=== PATIENT | female | born 1985 | race Caucasian/White ===

== ENCOUNTER 2019-08-19 08:00 | Outpatient (CLI) | payer OTHER ==
[2019-08-19 18:33] LABS: BILIRUBIN,URINE NEGATIVE (NEGATIVE); GLUCOSE, URINE (UA) NEGATIVE (NEGATIVE); KETONES,URINE (UA) NEGATIVE (NEGATIVE); LEUKOCYTE ESTERASE, URINE LARGE (NEGATIVE); NITRITE,URINE NEGATIVE (NEGATIVE); OCCULT BLOOD,URINE NEGATIVE (NEGATIVE); PROTEIN,URINE NEGATIVE (NEGATIVE); UROBILINOGEN,URINE 0.2 (NORMAL) E.U./dL (NORMAL)
[2019-08-19 18:48] LABS: BACTERIA,URINE Few /HPF (None Seen); CLARITY,URINE CLOUDY (CLEAR); RBC,URINE 0-5 /HPF (0-5); SQUAMOUS EPITHELIAL CELL,UR MANY Squamous (<= Few)
== END 2019-08-19 23:59 | disposition home or self-care (01) ==
LOC: LAB.R 08:00
PROVIDERS: ATTEND Physician Assistant Medical
DX: R82.90 Unspecified abnormal findings in urine (principal)
CPT/HCPCS: 81001; 81003; 87086

== ENCOUNTER 2019-08-19 12:59 | Outpatient (CLI) | payer OTHER ==
--- NOTE | 2019-08-20 15:18 | XRAY Report ---
Reason: CHRONIC HIP LOWER BACK PAIN Procedure Date: 08/19/2019 Accession Number: [id number] / [id number] Procedure: XRN - Lumbar Spine 2 View CPT Code: FULL RESULT: EXAM: LUMBOSACRAL SPINE RADIOGRAPHY EXAM DATE: 08/19/2019 01:24 PM. CLINICAL HISTORY: Chronic hip and lower back pain. COMPARISONS: None. TECHNIQUE: 3 views. FINDINGS: For the purposes of this report the last rib-bearing vertebral body is designated T12. 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 This is best demonstrated on the AP and sagittal views. There is fusion of the posterior elements also demonstrated on the sagittal images. This produces a focal levoscoliosis of the lumbar spine measuring 24 degrees with the apex at L2-L3. There is a moderate to severe decrease in the intervertebral disk space height at L5-S1 and S1-S2. The sacral arcs are normal in appearance. The renal shadows are normal in appearance. There is a normal bowel gas pattern. Bone density is normal. There is a 4 mm retrolisthesis of L5 on S1. There is moderate narrowing of the neural foramina at S1-S2 and mild to moderate narrowing at L5-S1. There is a moderate decrease in the intervertebral disk space height at L5-S1 and S1-S2 with endplate spondylosis. There is also mild sclerosis of the endplates consistent with Modic type III endplate degenerative change. There is a mild to moderate decrease in the height of the disk at L3-L4. IMPRESSION: 1. For the purposes of this report the last rib-bearing vertebral body is designated T12. 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 There is also congenital fusion of the posterior elements. See above for additional details. This produces a focal levoscoliosis measuring 24 degrees. Therefore, the last lumbar style vertebral body is designated S1. Therefore, there is likely a transitional vertebral body present. 2. There is no evidence of acute fracture of the lumbar spine. 3. There are moderate degenerative changes of the disk at L5-S1 and S1-S2.
--- NOTE | 2019-08-20 22:00 | XRAY Report ---
Reason: CHRONIC HIP BACK PAIN Procedure Date: 08/19/2019 Accession Number: [id number] / [id number] Procedure: XRN - Hip w/Pelvis 2-3V RT CPT Code: FULL RESULT: EXAM: RIGHT HIP RADIOGRAPHY EXAM DATE: 08/19/2019 01:24 PM. CLINICAL HISTORY: Right hip pain. COMPARISON: None. TECHNIQUE: 2 views including AP pelvis. FINDINGS: Bones: No fracture or bone destructive process. Joints: No subluxation. Bilateral hip joints are well preserved. Intact pubic symphysis and grossly symmetrical SI joints. Other: Degenerative changes of the visualized lower lumbar spine. IUD in the pelvis. IMPRESSION: 1. Unremarkable right hip radiographically. RADIA
== END 2019-08-19 13:00 | disposition home or self-care (01) ==
LOC: DI.N 12:59
PROVIDERS: ATTEND Physician Assistant Medical
DX: M51.37 Other intervertebral disc degeneration, lumbosacral region (principal); M53.3 Sacrococcygeal disorders, not elsewhere classified; M41.56 Other secondary scoliosis, lumbar region; M43.26 Fusion of spine, lumbar region; M25.551 Pain in right hip; R82.90 Unspecified abnormal findings in urine
CPT/HCPCS: 72100; 81001

== ENCOUNTER 2019-09-16 09:08 | Outpatient (CLI) | payer OTHER ==
[2019-09-16 12:27] LABS: BASOPHILS # (AUTO) 0.1 10^3/uL (0.0-0.1); BASOPHILS % (AUTO) 1.4 %; EOSINOPHILS # (AUTO) 0.1 10^3/uL (0.0-0.7); EOSINOPHILS % (AUTO) 1.8 %; HGB - HEMOGLOBIN 13.3 g/dL (12.0-16.0); LYMPHOCYTES # (AUTO) 2.1 10^3/uL (1.5-3.5); LYMPHOCYTES % (AUTO) 26.4 %; MEAN CORPUSCULAR HEMOGLOBIN 29.4 pg (27.0-31.0); MEAN CORPUSCULAR HGB CONC 32.1 g/dL (32.0-36.0); MEAN CORPUSCULAR VOLUME 91.4 fL (81.0-99.0); MEAN PLATELET VOLUME 11.6 fL (7.9-10.8); MONOCYTES # (AUTO) 0.6 10^3/uL (0.0-1.0); MONOCYTES % (AUTO) 8.1 %; NEUTROPHILS # (AUTO) 4.9 10^3/uL (1.5-6.6); PLT - PLATELET COUNT 318 10^3/uL (130-450); RED BLOOD COUNT 4.53 10^6/uL (4.20-5.40); WHITE BLOOD COUNT 7.9 x10^3/uL (4.8-10.8)
[2019-09-16 12:41] LABS: ALBUMIN 4.4 g/dL (3.2-5.5); ALBUMIN/GLOBULIN RATIO 1.2 (1.0-2.2); BILIRUBIN,TOTAL 1.6 mg/dL (0.2-1.0); CALCIUM 9.4 mg/dL (8.5-10.3)
== END 2019-09-16 09:09 | disposition home or self-care (01) ==
LOC: LAB.N 09:08
PROVIDERS: ATTEND Physician Assistant Medical
DX: R51 Headache (principal); R03.0 Elevated blood-pressure reading, without diagnosis of hypertension; R11.0 Nausea
CPT/HCPCS: 36415; 80050; 82306

== ENCOUNTER 2020-05-10 04:27 | Emergency (ER) | payer OTHER ==
--- NOTE | 2020-05-10 04:31 | ED Physician Documentation ---
PD HPI ABD PAIN - Stated complaint Stated Complaint: AB PX/ N/V - History obtained from History obtained from: Patient - History of Present Illness Timing - onset: Enter time (19:00), Last night Timing - details: Abrupt onset, Constant, Waxing and waning Pain level now: 8 Quality: Pain Location: RUQ, Epigastric Radiation: Other (does not radiate) Improved by: Other (no ameliorating factors) Worsened by: Palpation Associated symptoms: Nausea, Vomiting. No: Fever, Diarrhea, Constipation Similar symptoms before: Has not had sx before Recently seen: Not recently seen Review of Systems Constitutional: denies: Fever, Chills, Sweats Cardiac: reports: Reviewed and negative Respiratory: reports: Reviewed and negative GI: reports: Abdominal Pain, Nausea, Vomiting. denies: Abdominal Swelling, Constipation, Diarrhea : denies: Dysuria, Frequency Skin: denies: Rash Musculoskeletal: denies: Back pain PD PAST MEDICAL HISTORY - Past Medical History Past Medical History: No - Past Surgical History Past Surgical History: No - Present Medications Home Medications: Ambulatory Orders Medication Instructions Recorded Confirmed Ondansetron Odt [Zofran] 4 mg TL Q6H PRN #14 tablet 05/10/20 oxyCODONE/ACET 5/325 [Percocet 5 1 - 2 each PO Q6H PRN #14 tablet 05/10/20 mg/325 mg] - Allergies Allergies/Adverse Reactions: Allergies Allergy/AdvReac Type Severity Reaction Status Date / Time No Known Drug Allergies Allergy Verified 05/10/20 04:38 - Living Situation Living Arrangement: reports: At home - Social History Does the pt smoke?: No PD ED PE NORMAL - Vitals Vital signs reviewed: Yes - General General: Alert and oriented X 3, Well developed/nourished, Other (obvious painful discomfort) - HEENT HEENT: Moist mucous membranes - Neck Neck: Supple, no meningeal sign - Cardiac Cardiac: RRR, No murmur - Respiratory Respiratory: No respiratory distress, Clear bilaterally - Abdomen Abdomen: Soft, Non distended - Back Back: No CVA TTP - Derm Derm: Normal color, Warm and dry, No rash PD ED PE EXPANDED - Abdomen Abdomen: Tender to palpation, RUQ, Epigastric. No: Rebound, Guarding Results - Vitals Vitals: Oxygen O2 Source Room air - Labs Labs: Laboratory Tests 05/10/20 05/10/20 05/10/20 04:45 05:01 05:01 WBC 13.3 H RBC 4.68 Hgb 13.8 Hct 40.8 MCV 87.2 MCH 29.5 MCHC 33.8 RDW 12.6 Plt Count 331 MPV 11.0 H Neut # (Auto) 10.9 H Lymph # (Auto) 1.5 [place] # (Auto) 0.7 Eos # (Auto) 0.0 Baso # (Auto) 0.1 Absolute Nucleated RBC 0.00 Nucleated RBC % 0.0 Sodium 137 Potassium 3.2 L Chloride 101 Carbon Dioxide 22 Anion Gap 14.0 H BUN 19 Creatinine 1.0 Estimated GFR (MDRD) 63 L Glucose 115 H Calcium 9.1 Total Bilirubin 1.4 H AST 16 ALT 14 Alkaline Phosphatase 54 Total Protein 8.1 Albumin 5.0 Globulin 3.1 Albumin/Globulin Ratio 1.6 Lipase 25 Urine Color YELLOW Urine Clarity CLEAR Urine pH >=9.0 H Ur Specific [place] 1.010 Urine Protein TRACE Urine Glucose (UA) NEGATIVE Urine Ketones NEGATIVE Urine Occult Blood NEGATIVE Urine Nitrite NEGATIVE Urine Bilirubin NEGATIVE Urine Urobilinogen 0.2 (NORMAL) Ur Leukocyte Esterase NEGATIVE Ur Microscopic Review NOT INDICATED Urine Culture Comments NOT INDICATED Urine HCG, Qual NEGATIVE - Rads (name of study) RUQ US Radiology: Prelim report reviewed, See rad report PD MEDICAL DECISION MAKING - ED course Complexity details: reviewed results, re-evaluated patient, considered differential, d/w patient Departure - Departure Disposition: 01 Home, Self Care Clinical Impression: Biliary colic Condition: Good Instructions: ED Gallstone W Biliary Colic Follow-Up: Giuliano Leon MD [Provider Admit Priv/Credential] - Prescriptions: oxyCODONE/ACET 5/325 [Percocet 5 mg/325 mg] 1 - 2 each PO Q6H PRN #14 tablet PRN Reason: Pain Ondansetron Odt [Zofran] 4 mg TL Q6H PRN #14 tablet PRN Reason: Nausea / Vomiting Discharge Date/Time: 05/10/20 08:25
[2020-05-10] MEDS ORDERED: ONDANSETRON 4 MG/2 ML VIAL IVP STA (04:41)
[2020-05-10] MEDS ORDERED: SODIUM CHLORIDE 0.9% 1,000 ML IV STA (04:41)
[2020-05-10] MEDS ORDERED: KETOROLAC 30 MG/ML VIAL IVP STA (05:01)
[2020-05-10 05:08] LABS: BASOPHILS # (AUTO) 0.1 10^3/uL (0.0-0.1); BASOPHILS % (AUTO) 0.7 %; EOSINOPHILS % (AUTO) 0.3 %; HGB - HEMOGLOBIN 13.8 g/dL (12.0-16.0); LYMPHOCYTES # (AUTO) 1.5 10^3/uL (1.5-3.5); LYMPHOCYTES % (AUTO) 11.6 %; MEAN CORPUSCULAR HEMOGLOBIN 29.5 pg (27.0-31.0); MEAN CORPUSCULAR HGB CONC 33.8 g/dL (32.0-36.0); MEAN CORPUSCULAR VOLUME 87.2 fL (81.0-99.0); MONOCYTES # (AUTO) 0.7 10^3/uL (0.0-1.0); NEUTROPHILS # (AUTO) 10.9 10^3/uL (1.5-6.6); PLT - PLATELET COUNT 331 10^3/uL (130-450); RED BLOOD COUNT 4.68 10^6/uL (4.20-5.40); RED CELL DISTRIBUTION WIDTH 12.6 % (12.0-15.0); WHITE BLOOD COUNT 13.3 x10^3/uL (4.8-10.8)
[2020-05-10 05:12] LABS: BILIRUBIN,URINE NEGATIVE (NEGATIVE); CLARITY,URINE CLEAR (CLEAR); GLUCOSE, URINE (UA) NEGATIVE (NEGATIVE); HCG UR QUAL NEGATIVE; KETONES,URINE (UA) NEGATIVE (NEGATIVE); LEUKOCYTE ESTERASE, URINE NEGATIVE (NEGATIVE); NITRITE,URINE NEGATIVE (NEGATIVE); OCCULT BLOOD,URINE NEGATIVE (NEGATIVE); PH,URINE >=9.0 PH (5.0-7.5); PROTEIN,URINE TRACE mg/dL (NEGATIVE); UROBILINOGEN,URINE 0.2 (NORMAL) E.U./dL (NORMAL)
[2020-05-10 05:25] LABS: ALBUMIN/GLOBULIN RATIO 1.6 (1.0-2.2); BILIRUBIN,TOTAL 1.4 mg/dL (0.2-1.0); CALCIUM 9.1 mg/dL (8.5-10.3); TOTAL PROTEIN 8.1 g/dL (6.7-8.2)
[2020-05-10] MEDS ORDERED: PANTOPRAZOLE 40 MG VIAL IVP STA (07:07)
--- NOTE | 2020-05-10 07:28 | Ultrasound Report ---
PROCEDURE: Abdomen Limited INDICATIONS: RUQ pain TECHNIQUE: Real-time focused scanning was performed of the abdomen, with image documentation. COMPARISON: None FINDINGS: Liver is normal in size. Liver is diffusely echogenic. No focal hepatic mass lesions. Multiple mobile gallstones noted. Gallbladder wall is mildly thickened measuring 3.3 mm. No perichole cystic fluid. No sonographic Lopez sign (patient on pain medication). Biliary tree is nondilated. Common bile duct measures 5.7 mm. Pancreas is sonographically normal. Right kidney is sonographically normal. IMPRESSION: 1. Cholelithiasis with mild gallbladder wall thickening concerning for acute cholecystitis. Nuclear m edicine HIDA scan could be performed for definitive characterization if clinically indicated. 2. Echogenic liver. Finding typically represents fatty infiltration, however finding is nonspecific a nd other etiologies including hepatic cirrhosis can produce a similar appearance. Please correlate wi th clinical and laboratory data. Reviewed by: Sugey Bray MD, PhD on 05/10/2020 7:27 AM PDT Approved by: Sugey Bray MD, PhD on 05/10/2020 7:27 AM PDT Station ID: [id number]
[2020-05-10] MEDS ORDERED: oxyCODONE/ACET 5/325 Prepack 4 PO STA (07:30)
[2020-05-10 08:25] VITALS: BP 132/70
== END 2020-05-10 08:25 | disposition home or self-care (01) ==
LOC: ED 04:27
DX: K80.20 Calculus of gallbladder without cholecystitis without obstruction (principal)
CPT/HCPCS: 36415; 76705; 80053; 81001; 81003; 81025; 83690; 85025; 87086; 96361; 96374; 96375; 99284

== ENCOUNTER 2020-07-15 14:31 | Outpatient (CLI) | payer OTHER | END 2020-07-15 14:32 | disposition home or self-care (01) | LOC: COV 14:31 | PROVIDERS: ATTEND Surgery | DX: Z01.818 Encounter for other preprocedural examination (principal); K81.9 Cholecystitis, unspecified; Z20.828 Contact with and (suspected) exposure to other viral communicable diseases ==

== ENCOUNTER 2020-07-19 07:43 | Day surgery (SDC) | payer OTHER ==
[~2020-07-19 07:43] MED LIST: CEFAZOLIN SODIUM IN 0.9 % NACL 2 GM/100 ML BAG IV ONE
[2020-07-19 08:06] LABS: HCG UR QUAL NEGATIVE
[2020-07-19] MEDS ORDERED: BUPIVACAINE 0.25% PF 30 ML VIAL ONE (08:06)
[2020-07-19] MEDS ORDERED: LACTATED RINGERS 1,000 ML IV ONE ×2 (08:09→10:20)
--- NOTE | 2020-07-19 08:15 | ANESTHESIA ---
Pre-Anesthesia VS, & Labs - NPO >8 hours - Is Patient ?: No <Dre Gates - Last Filed: 07/19/20 08:14> - NPO >8 hours - Is Patient ?: Yes <Vi Mittal - Last Filed: 07/19/20 08:38> - Diagnosis Chronic cholecystitis (Dre Gates) - Procedure Laparoscopic cholecystectomy (Dre Gates) Vital Signs: Temp Pulse Resp BP Pulse Ox 36.7 C 81 18 145/98 H 100 07/19/20 07:45 07/19/20 07:45 07/19/20 07:45 07/19/20 07:45 07/19/20 07:45 Height 5 ft 9 in Weight (kg) 93.8 kg Body Mass Index 29.5 Home Medications and Allergies <Dre Gates - Last Filed: 07/19/20 08:14> <Vi Mittal - Last Filed: 07/19/20 08:38> Home Medications: Ambulatory Orders No Known Home Medications 07/04/20 Active Medications Atropine Sulfate () 0.5 mg IVP Q5M PRN PRN Reason: Bradycardia Stop: 07/20/20 08:28 Ephedrine Sulfate () 10 mg IVP Q5M PRN PRN Reason: HYPOTENSION Stop: 07/20/20 08:28 Fentanyl (Fentanyl) 25 - 50 mcg IVP Q5M PRN PRN Reason: BREAKTHROUGH PAIN (2nd Choice) Stop: 07/20/20 08:28 Gabapentin (Neurontin) 800 mg PO ONCE ONE Stop: 07/19/20 08:29 Hydromorphone HCl (Dilaudid Inj Syringe) 0.2 - 0.6 mg IVP Q5M PRN PRN Reason: PAIN (First Choice) Stop: 07/20/20 08:28 Lactated Ringer's (Lr) 1,000 mls @ 100 mls/hr IV .Q10H RE Stop: 07/19/20 18:59 Acetaminophen (Ofirmev) 100 mls @ 400 mls/hr IV ONCE ONE Stop: 07/19/20 08:42 Metoclopramide HCl (Reglan Inj) 10 mg IVP Q6HR PRN PRN Reason: N/V not relieved by Zofran Morphine Sulfate (Morphine (Carpuject)) 2 - 4 mg IVP Q5M PRN PRN Reason: PAIN (3rd Choice) Stop: 07/20/20 08:28 Naloxone HCl (Narcan) 0.1 mg IVP Q2M PRN PRN Reason: RESP RATE <8 Stop: 07/20/20 08:28 Ondansetron HCl (Zofran Inj) 4 mg IVP ONCE PRN PRN Reason: N/V (First Choice) Stop: 07/20/20 08:28 Scopolamine HBr (Transderm-Scop) 1 patch TOP ONCE ONE Stop: 07/19/20 08:29 No Known Home Medications 07/04/20 Allergies/Adverse Reactions: Allergies Allergy/AdvReac Type Severity Reaction Status Date / Time No Known Drug Allergies Allergy Verified 05/10/20 04:38 Anes History & Medical History - Anesthetic History Anesthesia Complications: reports: No previous complications Family history of Anesthesia Complications: Denies Family history of Malignant Hyperthermia: Denies - Medical History Cardiovascular: reports: None Pulmonary: reports: Asthma Gastrointestinal: reports: GERD, Cholelithiasis Urinary: reports: Chronic bladder infection Neuro: reports: Migraines Musculoskeletal: reports: Scoliosis, Chronic back pain, Other Endocrine/Autoimmune: reports: None Skin: reports: None Smoking Status: Never smoker <Dre Gates - Last Filed: 07/19/20 08:14> - Anesthetic History Anesthesia Complications: reports: No previous complications - Medical History Pulmonary: reports: Asthma, Cystic fibrosis Gastrointestinal: reports: GERD, Cholelithiasis Neuro: reports: Migraines Smoking Status: Never smoker <Vi Mittal E - Last Filed: 07/19/20 08:38> Exam General: Alert, Oriented x3, Cooperative, No acute distress Dental: WNL Mouth Openin Fingerbreadth Neck Mobility: Normal Mallampati classification: II Respiratory: Lungs clear, Normal breath sounds, No respiratory distress, No accessory muscle use Cardiovascular: Regular rate, Normal S1, Normal S2, No murmurs <Dre Gates - Last Filed: 07/19/20 08:14> General: Alert Dental: WNL Mouth Openin Fingerbreadth Neck Mobility: Normal Mallampati classification: II <Vi Mittal E - Last Filed: 07/19/20 08:38> Plan Anesthesia Type: General Consent for Procedure(s) Verified and Reviewed: Yes Code Status: Attempt Resuscitation ASA classification: 2-Mild systemic disease Is this case an emergency?: No <Dre Gates - Last Filed: 07/19/20 08:14> Anesthesia Type: General Consent for Procedure(s) Verified and Reviewed: Yes Code Status: Attempt Resuscitation ASA classification: 2-Mild systemic disease Is this case an emergency?: No <Vi Mittal - Last Filed: 07/19/20 08:38>
[2020-07-19] MEDS ORDERED: SCOPOLAMINE PATCH TOP ONE (08:28)
[2020-07-19] MEDS ORDERED: GABAPENTIN 400 MG CAPSULE PO ONE (08:28)
[2020-07-19] MEDS ORDERED: ONDANSETRON 4 MG/2 ML VIAL IVP PRN ×2 (08:28→10:17)
[2020-07-19] MEDS ORDERED: ATROPINE ABBOJECT 1 MG/10 ML SYRINGE IVP PRN (08:28)
[2020-07-19] MEDS ORDERED: ACETAMINOPHEN 1,000 MG/100 ML 100 ML IV ONE ×2 (08:28→08:49)
[2020-07-19] MEDS ORDERED: HYDROmorphone 0.5 MG/0.5 ML SYRINGE IVP PRN (08:28)
[2020-07-19] MEDS ORDERED: ePHEDrine 50 MG/ML VIAL IVP PRN (08:28)
[2020-07-19] MEDS ORDERED: METOCLOPRAMIDE 10 MG/2 ML VIAL IVP PRN (08:28)
[2020-07-19] MEDS ORDERED: NALOXONE 0.4 MG/ML VIAL IVP PRN (08:28)
[2020-07-19] MEDS ORDERED: fentaNYL 100 MCG/2 ML VIAL IVP PRN (08:28)
[2020-07-19] MEDS ORDERED: MORPHINE 2 MG/ML CARPUJECT IVP PRN (08:28)
[2020-07-19] MEDS ORDERED: DEXAMETHASONE 4 MG/ML VIAL IVP ONE (08:49)
[2020-07-19] MEDS ORDERED: ONDANSETRON 4 MG/2 ML VIAL IVP ONE (08:49)
[2020-07-19] MEDS ORDERED: KETAMINE 500 MG/10 ML VIAL IVP ONE (08:49)
[2020-07-19] MEDS ORDERED: MIDAZOLAM 2 MG/2 ML VIAL IVP ONE (08:49)
[2020-07-19] MEDS ORDERED: PROPOFOL 200 MG/20 ML VIAL IVP ONE (08:49)
[2020-07-19] MEDS ORDERED: KETOROLAC 30 MG/ML VIAL IVP ONE (08:49)
[2020-07-19] MEDS ORDERED: LIDOCAINE-MPF 2% 5 ML VIAL IM ONE (08:49)
[2020-07-19] MEDS ORDERED: ROCURONIUM 50 MG/5 ML VIAL IVP ONE (08:49)
[2020-07-19] MEDS ORDERED: MAGNESIUM SULFATE 1 GM/2 ML VIAL IV ONE (08:49)
[2020-07-19] MEDS ORDERED: LACTATED RINGERS 1,000 ML IV SCH (09:00)
[2020-07-19] MEDS ORDERED: SUGAMMADEX 200 MG/2 ML VIAL IVP ONE (10:07)
[2020-07-19] MEDS ORDERED: BUPIVACAINE 0.25% PF 30 ML VIAL SUBQ ONE (10:10)
[2020-07-19] MEDS ORDERED: HYDROcod/ACETAM 5/325 MG TABLET PO PRN (10:17)
[2020-07-19 11:32] VITALS: BP 134/72
--- NOTE | 2020-07-19 11:56 | ANESTHESIA POST OP EVALUATION ---
Anesthesia Post Eval - Post Anesthesia Eval Vitals: Last Vital Signs Temp 36.6 C 07/19/20 11:31 Pulse 72 07/19/20 11:31 Resp 16 07/19/20 11:31 BP 134/72 H 07/19/20 11:31 Pulse Ox 99 07/19/20 11:31 CV Function Including HR & BP: positive: Stable Pain Control: positive: Satisfactory Nausea & Vomiting: positive: Negative Mental Status: positive: Patient Participates Respiratory Status: Airway Patent Hydration Status: Satisfactory Anesthesia Complications: positive: None
--- NOTE | 2020-07-19 13:30 | OPERATIVE REPORT ---
DATE OF SERVICE: 07/19/2020 Physician: Giuliano Leon MD PREOPERATIVE DIAGNOSIS: Chronic cholecystitis. POSTOPERATIVE DIAGNOSIS: Chronic cholecystitis. PROCEDURE PERFORMED: Laparoscopic cholecystectomy. SURGEON: Giuliano Leon MD REPORT DEVELOPER: None. ANESTHESIA: General endotracheal anesthesia. Local anesthesia with Marcaine. COMPLICATIONS: None. SPECIMENS: Gallbladder. ESTIMATED BLOOD LOSS: None. DRAINS: None. FINDINGS: Tense, enlarged, chronically inflamed gallbladder. The common bile duct was evident without dissection and was normal in diameter. She had a healthy-appearing liver. Her hepatic artery came up quite high under the Rolan's pouch area. INDICATIONS FOR PROCEDURE: The patient is a healthy, active 34-year-old with classic chronic cholecystitis symptoms. She has not had signs or symptoms of choledocholithiasis. She presents for laparoscopic cholecystectomy. Risks discussed and alternatives discussed. All questions answered and consent obtained. DESCRIPTION OF PROCEDURE: The patient was properly identified and brought to the operating room and placed in supine position. General endotracheal anesthesia was induced. Sequential compression devices and orogastric tube were placed. She was prepped and draped in a sterile fashion and given preoperative antibiotics. Local anesthetic was given to incision areas. An infraumbilical 2-cm incision was made. Dissection proceeded down to the fascia. The fascia was incised, lifted upwards and abdomen entered with the Veress needle. CO2 was insufflated to a pressure of 15. An 11-mm trocar was then placed and 30-degree scope. There was no evidence of injury from Veress needle or trocar placement. Under direct vision, two 5-mm trocars were placed in the right upper quadrant and a 10-mm trocar was placed in the epigastrium. The gallbladder was enlarged and tense; however, I was still able to grasp it. The gallbladder was retracted anterior. Lateral attachments were partially taken down, further mobilizing the gallbladder more anterior and away from the duodenum. The infundibulum and Rolan's pouch area was released of its peritoneal type attachments and retracted right lateral and caudad. The Rolan's pouch area was carefully mobilized away from the liver with minimal use of cautery. She had a very short anterior cystic artery coming off a very high hepatic artery. The gallbladder was further mobilized off from the liver, creating a larger bare cystic plate area. The anterior cystic artery was then clipped at the gallbladder and x2 at the hepatic artery and sharply divided. This allowed for greater separation away from the hepatic artery. The cystic duct was then clipped at the gallbladder and x2 slightly proximal and sharply divided. There was a posterior cystic artery going underneath the gallbladder. This was clipped at the gallbladder and x2 slightly proximal and sharply divided. The gallbladder was brought out through the epigastric trocar site. There was scant spillage of bile removing the gallbladder. This was thoroughly irrigated. There were no apparent complications. Clips were secure. Trocars were removed under direct vision and CO2 evacuated. Fascia at the epigastrium was closed with a [id number] 0 Vicryl. Fascia at the infraumbilical site closed with a running 0 Vicryl suture. Subcutaneous tissue was irrigated and skin closed with buried interrupted 4-0 Monocryl. Dressings were applied. She tolerated the procedure well. TD: 07/19/2020 10:43 AJ
== END 2020-07-19 07:44 | disposition home or self-care (01) ==
LOC: SDS 07:43
PROVIDERS: ATTEND Surgery
PROC: 0FT44ZZ Resection of Gallbladder, Percutaneous Endoscopic Approach (ICD-10-PCS; principal; 2020-07-19 08:45)
DX: K80.10 Calculus of gallbladder with chronic cholecystitis without obstruction (principal)
CPT/HCPCS: 47562; 81025; A9270; J0131; J0690; J3490; J7120

== ENCOUNTER 2021-06-14 08:00 | Outpatient (CLI) | payer OTHER ==
[2021-06-14 12:58] LABS: BASOPHILS # (AUTO) 0.1 10^3/uL (0.0-0.1); BASOPHILS % (AUTO) 1.4 %; EOSINOPHILS # (AUTO) 0.2 10^3/uL (0.0-0.7); EOSINOPHILS % (AUTO) 2.4 %; HCT - HEMATOCRIT 38.6 % (37.0-47.0); LYMPHOCYTES # (AUTO) 2.1 10^3/uL (1.5-3.5); LYMPHOCYTES % (AUTO) 26.7 %; MEAN CORPUSCULAR HEMOGLOBIN 28.3 pg (27.0-31.0); MEAN CORPUSCULAR HGB CONC 31.1 g/dL (32.0-36.0); MEAN PLATELET VOLUME 11.2 fL (7.9-10.8); MONOCYTES # (AUTO) 0.6 10^3/uL (0.0-1.0); MONOCYTES % (AUTO) 7.5 %; NEUTROPHILS # (AUTO) 4.9 10^3/uL (1.5-6.6); NEUTROPHILS % (AUTO) 61.7 %; PLT - PLATELET COUNT 346 10^3/uL (130-450); RED BLOOD COUNT 4.24 10^6/uL (4.20-5.40); RED CELL DISTRIBUTION WIDTH 12.9 % (12.0-15.0); WHITE BLOOD COUNT 7.9 x10^3/uL (4.8-10.8)
[2021-06-14 13:31] LABS: ALBUMIN 4.3 g/dL (3.2-5.5); ALBUMIN/GLOBULIN RATIO 1.3 (1.0-2.2); ALKALINE PHOSPHATASE 53 IU/L (42-121); ALT ALANINE AMINOTRANSFERASE 13 IU/L (10-60); AST ASPARTATE AMINOTRANSFERASE 15 IU/L (10-42); BILIRUBIN,TOTAL 1.7 mg/dL (0.2-1.0); BUN - BLOOD UREA NITROGEN 14 mg/dL (6-20); CALCIUM 9.3 mg/dL (8.5-10.3); CARBON DIOXIDE - CO2 25 mmol/L (21-32); CHLORIDE 105 mmol/L (101-111); CHOL/HDL RATIO 4.5 (<4.4); CHOLESTEROL 196 mg/dL; CREATININE 0.8 mg/dL (0.4-1.0); CRP - C-REACTIVE PROTEIN < 1.0 mg/dL (0-1.0); GFR - MDRD 81 (>89); GLUCOSE 87 mg/dL (70-100); HDL CHOLESTEROL 44 mg/dL; LDL CHOLESTEROL,CALCULATED 127 mg/dL; LDL/HDL RATIO 2.9 (<4.4); POTASSIUM 4.2 mmol/L (3.5-5.0); SODIUM 139 mmol/L (135-145); TOTAL PROTEIN 7.7 g/dL (6.7-8.2); TRIGLYCERIDES 126 mg/dL; VLDL CHOLESTEROL 25 mg/dL
[2021-06-14 13:36] LABS: THYROID STIMULATING HORMONE 1.6 uIU/mL (0.34-5.60)
[2021-06-14 13:38] LABS: FREE T4 (FREE THYROXINE) 0.92 ng/dL (0.58-1.64)
[2021-06-14 13:43] LABS: ESTIMATED AVERAGE GLUCOSE 97 mg/dL (70-100)
== END 2021-06-14 23:59 | disposition home or self-care (01) ==
LOC: LAB.WCP 08:00
PROVIDERS: ATTEND Nurse Practitioner
DX: R53.83 Other fatigue (principal); R63.1 Polydipsia
CPT/HCPCS: 36415; 80050; 80061; 82607; 83036; 83721; 84439; 85651; 86140

== ENCOUNTER 2021-07-21 08:00 | Outpatient (CLI) | payer OTHER ==
[2021-07-21 11:55] LABS: BASOPHILS # (AUTO) 0.1 10^3/uL (0.0-0.1); EOSINOPHILS # (AUTO) 0.1 10^3/uL (0.0-0.7); EOSINOPHILS % (AUTO) 1.8 %; HCT - HEMATOCRIT 39.1 % (37.0-47.0); HGB - HEMOGLOBIN 12.5 g/dL (12.0-16.0); LYMPHOCYTES # (AUTO) 1.6 10^3/uL (1.5-3.5); LYMPHOCYTES % (AUTO) 29.4 %; MEAN CORPUSCULAR HEMOGLOBIN 29.1 pg (27.0-31.0); MEAN CORPUSCULAR VOLUME 91.1 fL (81.0-99.0); MEAN PLATELET VOLUME 11.8 fL (7.9-10.8); MONOCYTES # (AUTO) 0.5 10^3/uL (0.0-1.0); MONOCYTES % (AUTO) 8.9 %; NEUTROPHILS # (AUTO) 3.2 10^3/uL (1.5-6.6); NEUTROPHILS % (AUTO) 57.7 %; PLT - PLATELET COUNT 273 10^3/uL (130-450); RED BLOOD COUNT 4.29 10^6/uL (4.20-5.40); RED CELL DISTRIBUTION WIDTH 12.6 % (12.0-15.0); WHITE BLOOD COUNT 5.5 x10^3/uL (4.8-10.8)
[2021-07-21 13:26] LABS: ESTIMATED AVERAGE GLUCOSE 97 mg/dL (70-100)
[2021-07-21 14:11] LABS: THYROID STIMULATING HORMONE 1.41 uIU/mL (0.34-5.60)
[2021-07-21 14:13] LABS: FREE T4 (FREE THYROXINE) 0.95 ng/dL (0.58-1.64)
[2021-07-21 14:14] LABS: ALBUMIN 4.3 g/dL (3.2-5.5); ALBUMIN/GLOBULIN RATIO 1.3 (1.0-2.2); ALKALINE PHOSPHATASE 54 IU/L (42-121); ALT ALANINE AMINOTRANSFERASE 15 IU/L (10-60); AST ASPARTATE AMINOTRANSFERASE 15 IU/L (10-42); BILIRUBIN,TOTAL 1.4 mg/dL (0.2-1.0); BUN - BLOOD UREA NITROGEN 18 mg/dL (6-20); CALCIUM 9.2 mg/dL (8.5-10.3); CARBON DIOXIDE - CO2 27 mmol/L (21-32); CHLORIDE 103 mmol/L (101-111); CHOL/HDL RATIO 4.6 (<4.4); CHOLESTEROL 202 mg/dL; CREATININE 0.8 mg/dL (0.4-1.0); GFR - MDRD 81 (>89); GLUCOSE 90 mg/dL (70-100); HDL CHOLESTEROL 44 mg/dL; LDL CHOLESTEROL,CALCULATED 134 mg/dL; POTASSIUM 4.1 mmol/L (3.5-5.0); SODIUM 137 mmol/L (135-145); TOTAL PROTEIN 7.5 g/dL (6.7-8.2); TRIGLYCERIDES 120 mg/dL; VLDL CHOLESTEROL 24 mg/dL
[2021-07-21 14:25] LABS: CRP - C-REACTIVE PROTEIN < 1.0 mg/dL (0-1.0)
== END 2021-07-21 23:59 | disposition home or self-care (01) ==
LOC: LAB.WCP 08:00
PROVIDERS: ATTEND Nurse Practitioner
DX: R53.83 Other fatigue (principal); R63.1 Polydipsia
CPT/HCPCS: 36415; 80050; 80061; 82607; 83036; 83721; 84439; 85651; 86140

== ENCOUNTER 2021-10-25 12:38 | Outpatient (CLI) | payer OTHER ==
--- NOTE | 2021-10-25 17:18 | MRI Report ---
PROCEDURE: Cervical Spine W/O INDICATIONS: CERVICAL DISC DISORDER WITH RADICULOPATHY TECHNIQUE: Noncontrast sagittal T1 spin echo and T2 fast spin echo, sagittal STIR, foraminal oblique sagittal T2 fast spin echo, and axial gradient echo or T2 fast spin echo through the cervical spine. COMPARISON: Plain films of the cervical spine dated 09/23/2019. FINDINGS: Image quality: Excellent. Alignment and Curvature: There is loss of normal cervical lordosis. Mild grade 1 retrolisthesis of C 5 on C6 and C6 on C7. Bone Marrow: Marrow demonstrates normal overall signal. Mild reactive signal throughout the endplat es of the cervical and upper thoracic spine. Spinal Cord: Visualized spinal cord has normal size and signal. No cerebellar tonsillar herniation. Paraspinous Soft Tissues: No paravertebral masses. Prevertebral soft tissues are normal in thicknes s. C2-C3: Mild disc desiccation. No significant canal, nor foraminal stenosis. C3-C4: Moderate disc desiccation. Mild diffuse disc bulge. Mild facet and uncovertebral hypertrophy bilaterally. Mild canal stenosis. Mild bilateral foraminal stenosis. C4-C5: Moderate disc desiccation. Mild diffuse disc bulge. Mild canal stenosis. No foraminal stenosi s. C5-C6: Moderate disc desiccation. Mild diffuse disc bulge. Mild facet and uncovertebral hypertrophy bilaterally. Moderate canal stenosis. Mild bilateral foraminal stenosis. C6-C7: Moderate disc desiccation. Mild diffuse disc bulge. Mild facet and uncovertebral hypertrophy bilaterally. Moderate canal stenosis. Mild bilateral foraminal stenosis. C7-T1: Normal in appearance. IMPRESSION: 1. Multilevel degenerative disc and facet disease, as well as uncovertebral hypertrophy. 2. Multilevel canal stenoses, worst at C5-C6 and C6-C7 where there is moderate canal stenosis. 3. Mild multilevel foraminal stenoses. Reviewed by: Ghassan Hogan MD on 10/25/2021 4:17 PM [place] Approved by: Ghassan Hogan MD on 10/25/2021 4:17 PM [place] Station ID: [id number]
== END 2021-10-25 12:39 | disposition home or self-care (01) ==
LOC: DI 12:38
PROVIDERS: ATTEND Nurse Practitioner
DX: M47.22 Other spondylosis with radiculopathy, cervical region (principal); M48.02 Spinal stenosis, cervical region; M50.11 Cervical disc disorder with radiculopathy, high cervical region

== ENCOUNTER 2022-05-18 18:12 | Outpatient (CLI) | payer OTHER ==
[2022-05-18 20:53] LABS: BASOPHILS # (AUTO) 0.1 10^3/uL (0.0-0.1); BASOPHILS % (AUTO) 1.3 %; EOSINOPHILS # (AUTO) 0.1 10^3/uL (0.0-0.7); EOSINOPHILS % (AUTO) 1.3 %; HCT - HEMATOCRIT 33.4 % (37.0-47.0); HGB - HEMOGLOBIN 10.7 g/dL (12.0-16.0); LYMPHOCYTES % (AUTO) 26.2 %; MEAN CORPUSCULAR HEMOGLOBIN 28.5 pg (27.0-31.0); MEAN CORPUSCULAR VOLUME 89.1 fL (81.0-99.0); MEAN PLATELET VOLUME 11.4 fL (7.9-10.8); MONOCYTES # (AUTO) 0.7 10^3/uL (0.0-1.0); MONOCYTES % (AUTO) 9.1 %; NEUTROPHILS # (AUTO) 4.6 10^3/uL (1.5-6.6); PLT - PLATELET COUNT 332 10^3/uL (130-450); RED BLOOD COUNT 3.75 10^6/uL (4.20-5.40); RED CELL DISTRIBUTION WIDTH 13.1 % (12.0-15.0); WHITE BLOOD COUNT 7.4 x10^3/uL (4.8-10.8)
[2022-05-18 21:13] LABS: ALBUMIN 3.9 g/dL (3.2-5.5); ALBUMIN/GLOBULIN RATIO 1.1 (1.0-2.2); ALKALINE PHOSPHATASE 40 IU/L (42-121); ALT ALANINE AMINOTRANSFERASE 17 IU/L (10-60); AST ASPARTATE AMINOTRANSFERASE 15 IU/L (10-42); BILIRUBIN,TOTAL 0.8 mg/dL (0.2-1.0); BUN - BLOOD UREA NITROGEN 15 mg/dL (6-20); CALCIUM 9.2 mg/dL (8.5-10.3); CARBON DIOXIDE - CO2 28 mmol/L (21-32); CHLORIDE 101 mmol/L (101-111); CHOL/HDL RATIO 3.9 (<4.4); CHOLESTEROL 186 mg/dL; CREATININE 0.9 mg/dL (0.4-1.0); GFR - MDRD 70 (>89); GLUCOSE 94 mg/dL (70-100); HDL CHOLESTEROL 48 mg/dL; LDL CHOLESTEROL,CALCULATED 112 mg/dL; LDL/HDL RATIO 2.3 (<4.4); POTASSIUM 3.9 mmol/L (3.5-5.0); SODIUM 137 mmol/L (135-145); TOTAL PROTEIN 7.3 g/dL (6.7-8.2); TRIGLYCERIDES 129 mg/dL; VLDL CHOLESTEROL 26 mg/dL
[2022-05-18 21:25] LABS: THYROID STIMULATING HORMONE 2.28 uIU/mL (0.34-5.60)
[2022-05-18 21:31] LABS: ESTIMATED AVERAGE GLUCOSE 100 mg/dL (70-100); HEMOGLOBIN A1c% 5.1 % (4.27-6.07)
== END 2022-05-18 18:13 | disposition home or self-care (01) ==
LOC: LAB.N 18:12
PROVIDERS: ATTEND Nurse Practitioner
DX: R53.83 Other fatigue (principal); Z79.899 Other long term (current) drug therapy; Z13.220 Encounter for screening for lipoid disorders
CPT/HCPCS: 36415; 80050; 80061; 83036; 83721

== ENCOUNTER 2022-07-24 16:46 | Outpatient (CLI) | payer OTHER ==
[2022-07-24 21:32] LABS: BASOPHILS # (AUTO) 0.1 10^3/uL (0.0-0.1); BASOPHILS % (AUTO) 1.2 %; EOSINOPHILS # (AUTO) 0.1 10^3/uL (0.0-0.7); EOSINOPHILS % (AUTO) 1.9 %; HCT - HEMATOCRIT 36.8 % (37.0-47.0); HGB - HEMOGLOBIN 11.6 g/dL (12.0-16.0); LYMPHOCYTES # (AUTO) 2.2 10^3/uL (1.5-3.5); LYMPHOCYTES % (AUTO) 32.4 %; MEAN CORPUSCULAR HEMOGLOBIN 27.2 pg (27.0-31.0); MEAN CORPUSCULAR HGB CONC 31.5 g/dL (32.0-36.0); MEAN CORPUSCULAR VOLUME 86.4 fL (81.0-99.0); MEAN PLATELET VOLUME 11.6 fL (7.9-10.8); MONOCYTES # (AUTO) 0.6 10^3/uL (0.0-1.0); MONOCYTES % (AUTO) 9.4 %; NEUTROPHILS # (AUTO) 3.7 10^3/uL (1.5-6.6); PLT - PLATELET COUNT 322 10^3/uL (130-450); RED BLOOD COUNT 4.26 10^6/uL (4.20-5.40); RED CELL DISTRIBUTION WIDTH 13.6 % (12.0-15.0); WHITE BLOOD COUNT 6.8 x10^3/uL (4.8-10.8)
[2022-07-24 22:08] LABS: FERRITIN 2.6 ng/mL (11.0-306.8)
[2022-07-24 22:54] LABS: % IRON SATURATION 23 % (20-50); IRON 145 ug/dL (28-170); TOTAL IRON BINDING CAPACITY 641 ug/dL (250-450); TRANSFERRIN 458 mg/dL (192-382)
== END 2022-07-24 16:47 | disposition home or self-care (01) ==
LOC: LAB.N 16:46
PROVIDERS: ATTEND Nurse Practitioner
DX: D64.9 Anemia, unspecified (principal)
CPT/HCPCS: 36415; 82607; 82728; 83540; 84466; 85025

== ENCOUNTER 2022-12-18 09:46 | Outpatient (CLI) | payer OTHER ==
[2022-12-18 12:36] LABS: BASOPHILS # (AUTO) 0.1 10^3/uL (0.0-0.1); BASOPHILS % (AUTO) 1.2 %; EOSINOPHILS % (AUTO) 0.4 %; HCT - HEMATOCRIT 42.1 % (37.0-47.0); HGB - HEMOGLOBIN 13.2 g/dL (12.0-16.0); LYMPHOCYTES # (AUTO) 1.3 10^3/uL (1.5-3.5); LYMPHOCYTES % (AUTO) 19.7 %; MEAN CORPUSCULAR HEMOGLOBIN 28.4 pg (27.0-31.0); MEAN CORPUSCULAR HGB CONC 31.4 g/dL (32.0-36.0); MEAN CORPUSCULAR VOLUME 90.5 fL (81.0-99.0); MEAN PLATELET VOLUME 11.2 fL (7.9-10.8); MONOCYTES # (AUTO) 0.5 10^3/uL (0.0-1.0); NEUTROPHILS # (AUTO) 4.9 10^3/uL (1.5-6.6); NEUTROPHILS % (AUTO) 71.4 %; PLT - PLATELET COUNT 373 10^3/uL (130-450); RED BLOOD COUNT 4.65 10^6/uL (4.20-5.40); RED CELL DISTRIBUTION WIDTH 12.9 % (12.0-15.0); WHITE BLOOD COUNT 6.8 x10^3/uL (4.8-10.8)
[2022-12-18 13:09] LABS: % IRON SATURATION 24 % (20-50); IRON 115 ug/dL (28-170); TOTAL IRON BINDING CAPACITY 483 ug/dL (250-450); TRANSFERRIN 345 mg/dL (192-382)
== END 2022-12-18 09:47 | disposition home or self-care (01) ==
LOC: LAB.N 09:46
PROVIDERS: ATTEND Nurse Practitioner
DX: D64.9 Anemia, unspecified (principal)
CPT/HCPCS: 36415; 82728; 83540; 84466; 85025